=== PATIENT | male | born 1970 | race Caucasian/White ===

== ENCOUNTER 2018-02-22 17:25 | Emergency (ER) | payer MEDICAID ==
[2018-02-22] MEDS: DEXAMETHASONE 10 MG/ML 1 ML INJ IV (19:43)
[2018-02-22] MEDS: CEFTRIAXONE 1 GM/50 ML (PMX) 50 ML IVPB (19:43)
[2018-02-22] MEDS: KETOROLAC 15 MG INJ IV (19:43)
== END 2018-02-22 20:17 | disposition home or self-care (01) ==
LOC: FTE 17:25
DX: J03.90 Acute tonsillitis, unspecified (principal)
CPT/HCPCS: 96374; 96375; 99284-25

== ENCOUNTER 2018-02-24 07:39 | Emergency (ER) | payer MEDICAID ==
[2018-02-24] MEDS: KETOROLAC 30 MG INJ IM (08:11)
== END 2018-02-24 09:34 | disposition home or self-care (01) ==
LOC: FTE 07:39
DX: J03.90 Acute tonsillitis, unspecified (principal)
CPT/HCPCS: 87880; 96372; 99284-25

== ENCOUNTER 2018-05-23 11:37 | Emergency (ER) | payer MEDICAID ==
[2018-05-23] MEDS: KETOROLAC 15 MG INJ IV (12:01)
[2018-05-23] MEDS: ONDANSETRON 4 MG INJ IV (12:01)
[2018-05-23] MEDS: SOD CHLORIDE 0.9% 1,000 ML IV (12:02)
[2018-05-23 12:16] LABS: ADD MAN DIFF? NO
[2018-05-23 12:19] LABS: WHITE BLOOD COUNT 5.4 10^3/ul (4.8-10.8)
[2018-05-23 12:19] LABS: BASOPHILS % 0.7 % (0.0-2.0); EOSINOPHILS # 0.1 10^3/ul (0.0-0.5); EOSINOPHILS % 0.9 % (0.0-7.0); HEMATOCRIT 45.5 % (42.0-52.0); HEMOGLOBIN 15.5 g/dl (14.0-18.0); LYMPHOCYTES # 1.7 10^3/ul (0.8-2.9); LYMPHOCYTES % 32.2 % (15.0-51.0); MEAN CORPUSCULAR HEMOGLOBIN 30.4 pg (29.0-33.0); MEAN CORPUSCULAR HGB CONC 34.1 g/dl (32.0-37.0); MEAN CORPUSCULAR VOLUME 89.2 fl (82.0-101.0); MONOCYTE # 0.4 10^3/ul (0.3-0.9); MONOCYTES % 6.7 % (0.0-11.0); NEUTROPHIL # 3.2 10^3/ul (1.6-7.5); NEUTROPHILS % 59.1 % (39.0-77.0); PLATELET COUNT 305 10^3/UL (140-415); RED CELL DISTRIBUTION WIDTH 12.3 % (11.5-14.5)
[2018-05-23 12:39] LABS: ALANINE AMINOTRANSFERASE 45 IU/L (13-69); ALBUMIN 4.3 g/dl (3.3-4.9); ALBUMIN/GLOBULIN RATIO 1.22; ALKALINE PHOSPHATASE 86 IU/L (42-121); ANION GAP 9 (5-13); ASPARTATE AMINO TRANSFERASE 40 IU/L (15-46); BILIRUBIN,INDIRECT 1.8 mg/dl (0-1.1); BILIRUBIN,TOTAL 1.8 mg/dl (0.2-1.3); BLOOD UREA NITROGEN 11 mg/dl (7-20); CALCIUM 9.5 mg/dl (8.4-10.2); CARBON DIOXIDE 31 mmol/L (21-31); CHLORIDE 102 mmol/L (97-110); Estimated GFR > 60 mL/min (>60); GLUCOSE 104 mg/dl (70-220); LIPASE 82 U/L (23-300); POTASSIUM 3.7 mmol/L (3.5-5.1); SODIUM 142 mmol/L (135-144); TOTAL PROTEIN 7.8 g/dl (6.1-8.1)
== END 2018-05-23 13:08 | disposition home or self-care (01) ==
LOC: FTE 11:37
DX: R11.2 Nausea with vomiting, unspecified (principal); R19.7 Diarrhea, unspecified
CPT/HCPCS: 36415; 80053; 83690; 85025; 96361; 96374; 96375; 99284-25

== ENCOUNTER 2018-09-28 13:49 | Emergency (ER) | payer MEDICAID | END 2018-09-28 16:59 | disposition home or self-care (01) | LOC: FTE 13:49 | DX: S20.212A Contusion of left front wall of thorax, initial encounter (principal); W20.8XXA Other cause of strike by thrown, projected or falling object, initial encounter; Y92.89 Other specified places as the place of occurrence of the external cause | CPT/HCPCS: 71100; 93005; 99284-25 ==

== ENCOUNTER 2019-02-10 19:19 | Emergency (ER) | payer BC, MEDICAID ==
[2019-02-10] MEDS: IBUPROFEN 800 MG TAB PO (20:33)
== END 2019-02-10 20:47 | disposition home or self-care (01) ==
LOC: FTE 19:19
DX: M72.2 Plantar fascial fibromatosis (principal)
CPT/HCPCS: 99282